=== PATIENT | female | born 1990 | race Caucasian/White ===

== ENCOUNTER 2022-12-09 07:33 | Day surgery (SDC) | payer BC, SELFPAY ==
[2022-12-09] MEDS: LACTATED RINGERS 1000 ML 1,000 ML 100 ML IV (07:50)
[2022-12-09 07:53] VITALS: BP 108/82; PULSE 78; RESP 16; TEMP 36.6; O2SAT 97; BMI 25.8
[2022-12-09] MEDS: SODIUM CHLORIDE 0.9 % (FLUSH) 10 ML SYRINGE IVF (08:06)
[2022-12-09 08:07] LABS: Hemoglobin* 14.5 gm/dL (12.0-16.0)
--- NOTE | 2022-12-09 08:34 | W.ANESCHARGE ---
Anesthesia Charges Start Date/Time Anesthesia Start Date: 12/09/22 Anesthesia Start Time: 08:43 Stop Date/Time Anesthesia Stop Date: 12/09/22 Anesthesia Stop Time: 10:14 Summary Emergency: No
[2022-12-09 09:08] LABS: Ur HCG Qualitative* Negative (Negative)
[2022-12-09] MEDS: LIDOCAINE 1 % PF 30 ML INJECTION (09:15)
[2022-12-09] MEDS: ESTROGENS, CONJUGATED VAGINAL 0.625 MG/G CREAM 1 APPLIC TOPICAL (09:26)
--- NOTE | 2022-12-09 10:14 | W.ANESCHARGE ---
Anesthesia Charges Start Date/Time Anesthesia Start Date: 12/09/22 Anesthesia Start Time: 08:43 Stop Date/Time Anesthesia Stop Date: 12/09/22 Anesthesia Stop Time: 10:14 Summary Emergency: No
[2022-12-09 10:17] VITALS: BP 102/73; PULSE 82; RESP 16; TEMP 36.9; O2SAT 98
--- NOTE | 2022-12-09 10:26 | W.PM.GYNPROC ---
Procedure Note Date Seen: 12/09/22 Procedure Details: Preop diagnosis: Perineal laceration repair revision, pelvic pain Postop diagnosis:Perineal laceration repair revision, pelvic pain Name of procedure: Pelvic exam under anesthesia, excision of perineal scar tissue, perineorrhaphy Surgeon: Lady Ervin Clinical Education Manager: None Complications: None EBL: 10mL Drains: None Findings: External hemorrhoids seen. Bilateral labia majora normal. Vaginal opening accommodates 1 finger. Posteriorly evidence of perineal laceration repair with adherence of posterior labia minora in the midline. There is about 2 cm of adhered tissue posteriorly closing the introitus. Vaginally there is fibrous tissue noted posteriorly and about 1cm in from hymenal ring. Behind the hymenal ring after this fibrous tissue there is an empty space followed by soft and normal posterior vaginal wall tissue. Patient was taken to the OR where MAC was provided w/o difficulty. Patient was placed in the dorsal lithotomy position, cleansed and draped in the usual sterile manner. Area of concern was infiltrated with local anesthetic 1% lidocaine with epinephrine, a total of 25mL of local anesthetic was utilized throughout the procedure. Allis clamps were placed at the level of the hymen and bilaterally at the posterior labia minora to delineate the shape of a jarocho with the posterior end at the level of a normal perineum/introitus. Utilizing a scalpel a jarocho shape incision was made to remove excess fibrotic tissue, which was removed with Metzembaum scissors. A moist gauze was then utilized to separate the fibromuscular layer from the vagina and this tissue was then reapproximated utilizing Vicryl 2-0 in an interrupted fashion making sure that sutures were symmetrical and knotting was midline. Then the vaginal apex was sutured with Vicryl 3-0 in an interrupted fashion until the level of the hymen. In a similar fashion as when closing a second degree perineal laceration. After approximation the introitus was able to easily accommodate 2-3 finger-breaths. The perineal skin was closed in a interrupted manner with Vicryl 4-0. To create symmetry the right labia majora posteriorly seemed longer and more redundant than the left side and a small amount of this tissue 0.5-1cm was removed with Metzembaum scissors. This was also united with interrupted stitches of Vicryl 4-0. To close up the empty space between the apex of the posterior vaginal wall at about 1cm above the hymen, 1 suture of Vicryl 3-0 was utilized. Estrogen cream was then applied gently to the area. Patient tolerated procedure well. She was waken up from anesthesia w/o complication. She was then transferred to recovery area in a stable condition. Instructions for pain management, cleansing, follow up were discussed with patient prior to surgery.
[2022-12-09 10:36] VITALS: BP 101/69; PULSE 78; RESP 14; O2SAT 99
[2022-12-09] MEDS: ACETAMINOPHEN 500 MG TABLET 1000 MG PO (11:37)
[2022-12-09 11:39] VITALS: BP 104/68; PULSE 72; RESP 14; TEMP 37; O2SAT 100
== END 2022-12-09 11:42 | disposition home or self-care (01) ==
PROVIDERS: PCP Family Medicine; Visit Provider Obstetrics & Gynecology
PROC: 0UQG0ZZ Repair Vagina, Open Approach (ICD-10-PCS; CPT 56800; principal; 2022-12-09 08:45)
DX: R10.2 Pelvic and perineal pain (principal); N90.89 Other specified noninflammatory disorders of vulva and perineum
CPT/HCPCS: 56800; 36415; 81025; 85018; 940; A9270; J1885; J2001; J2250; J2405; J2704; J3010; J7120

== ENCOUNTER 2023-11-08 10:30 | Outpatient (CLI) | payer BC, SELFPAY ==
--- NOTE | 2023-11-08 10:45 | CRLHL7_ITS ---
For Patients: As a result of the Century Cures Act, medical imaging exams and procedure reports are released immediately into your electronic medical record. You may view this report before your referring provider. If you have questions, please contact your health care provider. CLINICAL HISTORY: Pelvic pain TECHNIQUE: 2D jackson scale ultrasound. In addition color Doppler and spectral Doppler analysis was performed of the pelvis using a transabdominal and transvaginal approach. FINDINGS: An intramural fibroid is present within the right uterine fundus measuring 1.1 x 0.7 x 0.8 cm. The uterus measures 9.5 x 4.2 x 5.4 cm. The endometrial lining measures 12 mm in thickness. The right ovary measures 4.0 x 2.7 x 2.6 cm in size and the left ovary measures 3.1 x 1.4 x 2.0 cm. The ovaries demonstrate normal arterial and venous blood flow on color Doppler and spectral Doppler analysis. There are no suspicious fluid collections within the cul-de-sac. IMPRESSION: Normal ovaries. No torsion. No adnexal mass or excess pelvic free fluid. Small intramural fibroid measuring 1.1 cm. Dictated by Trino Ndiaye MD @ 11/08/2023 11:18:59 AM (Electronically Signed)
== END 2023-11-08 10:31 | disposition home or self-care (01) ==
LOC: US 10:31
PROVIDERS: PCP Family Medicine; Visit Provider Obstetrics & Gynecology
DX: R10.2 Pelvic and perineal pain (principal); D25.1 Intramural leiomyoma of uterus
CPT/HCPCS: 76830; 76856; 93976

== ENCOUNTER 2024-05-16 14:13 | Outpatient (CLI) | payer BC, SELFPAY | END 2024-05-16 14:14 | disposition home or self-care (01) | LOC: NFLDREF 14:15 | PROVIDERS: PCP Family Medicine; Visit Provider Family Medicine | DX: F41.9 Anxiety disorder, unspecified (principal) | CPT/HCPCS: 84443 ==

== ENCOUNTER 2024-06-26 15:44 | Outpatient (CLI) | payer BC, SELFPAY ==
--- NOTE | 2024-06-26 16:00 | CRLHL7_ITS ---
For Patients: As a result of the Cures Act, medical imaging exams and procedure reports are released immediately into your electronic medical record. You may view this report before your referring provider. If you have questions, please contact your health care provider. INDICATION: First trimester scan, establish dates. COMPARISON: None. TECHNIQUE: Real-time jackson-scale imaging of the pelvis was performed. FINDINGS: Sonographic imaging demonstrates a single twin diamniotic/dichorionic intrauterine gestation. Twin A: The embryo demonstrates a regular cardiac rate measuring 161 beats per minute. The embryo`s crown-rump length measurement of 2.4 cm corresponds to a gestational age of 9 weeks 0 days with a sonographic due date of 01/29/2025. There is a normal-appearing yolk sac. There are no gross abnormalities noted within the embryo at this early state of development. Twin B: The embryo demonstrates a regular cardiac rate measuring 171 beats per minute. The embryo`s crown-rump length measurement of 2.5 cm corresponds to a gestational age of 9 weeks 1 day with a sonographic due date of 01/28/2025. There is a normal-appearing yolk sac. There are no gross abnormalities noted within the embryo at this early state of development. Left inferior subchorionic hemorrhage measures 3.3 x 1.3 x 2.0 cm. The cervix is closed. The myometrium appears normal. The ovaries are of normal size. There are no suspicious fluid collections noted in the cul-de-sac. IMPRESSION: Twin A: Sonographic gestational age 9 weeks 0 days and a sonographic due date of 01/29/2025. Twin B: Sonographic gestational age 9 weeks 1 day and sonographic due date of 01/28/2025. Left inferior subchorionic hemorrhage measures 3.3 x 1.3 x 2.0 cm. Dictated by Trino Ndiaye MD @ 06/27/2024 9:53:43 AM (Electronically Signed)
== END 2024-06-26 15:45 | disposition home or self-care (01) ==
LOC: US 15:44
PROVIDERS: PCP Family Medicine; Visit Provider Registered Nurse
DX: Z34.91 Encounter for supervision of normal pregnancy, unspecified, first trimester (principal); O30.001 Twin pregnancy, unspecified number of placenta and unspecified number of amniotic sacs, first trimester; O20.9 Hemorrhage in early pregnancy, unspecified; Z3A.09 9 weeks gestation of pregnancy
CPT/HCPCS: 76817; 86703; 86706; 86803; 86850; 86900; 86901; 87086; 87340; 87491; 87591

== ENCOUNTER 2024-06-26 17:07 | Outpatient (CLI) | payer BC, SELFPAY ==
[2024-06-26 23:13] LABS: Chlamydia DNA Amplified* NOT DETECTED (No Detected); GC DNA Amplified* NOT DETECTED (No Detected)
== END 2024-06-26 17:08 | disposition home or self-care (01) ==
PROVIDERS: PCP Family Medicine; Visit Provider Registered Nurse
DX: Z34.81 Encounter for supervision of other normal pregnancy, first trimester (principal)
CPT/HCPCS: 86592; 86703; 86704; 86706; 86762; 86787; 86803; 86850; 86900; 86901; 87086; 87340; 87491; 87591

== ENCOUNTER 2024-09-05 08:42 | Outpatient (CLI) | payer BC, SELFPAY | END 2024-09-05 08:43 | disposition home or self-care (01) | LOC: US 08:43 | PROVIDERS: PCP Family Medicine; Visit Provider Registered Nurse | DX: O30.002 Twin pregnancy, unspecified number of placenta and unspecified number of amniotic sacs, second trimester (principal); Z3A.18 18 weeks gestation of pregnancy | CPT/HCPCS: 76811; 76812 ==

== ENCOUNTER 2024-10-03 09:52 | Outpatient (CLI) | payer BC, SELFPAY | END 2024-10-03 09:53 | disposition home or self-care (01) | LOC: US 09:52 | PROVIDERS: PCP Family Medicine; Visit Provider Obstetrics & Gynecology | DX: O30.009 Twin pregnancy, unspecified number of placenta and unspecified number of amniotic sacs, unspecified trimester (principal); Q24.8 Other specified congenital malformations of heart | CPT/HCPCS: 76816 ==

== ENCOUNTER 2024-10-31 10:07 | Outpatient (CLI) | payer BC, SELFPAY | END 2024-10-31 10:08 | disposition home or self-care (01) | LOC: US 10:08 | PROVIDERS: PCP Family Medicine; Visit Provider Obstetrics & Gynecology | DX: O30.002 Twin pregnancy, unspecified number of placenta and unspecified number of amniotic sacs, second trimester (principal); Q24.8 Other specified congenital malformations of heart; Z3A.26 26 weeks gestation of pregnancy | CPT/HCPCS: 76816 ==

== ENCOUNTER 2024-11-22 10:14 | Outpatient (CLI) | payer BC, SELFPAY | END 2024-11-22 10:15 | disposition home or self-care (01) | LOC: NFLDREF 12-03 14:20 | PROVIDERS: PCP Family Medicine; Referring Provider Family Medicine; Visit Provider Obstetrics & Gynecology | DX: Z34.93 Encounter for supervision of normal pregnancy, unspecified, third trimester (principal); Z3A.30 30 weeks gestation of pregnancy | CPT/HCPCS: 86592 ==

== ENCOUNTER 2025-01-02 12:45 | Outpatient (CLI) | payer BC, SELFPAY | END 2025-01-02 12:46 | disposition home or self-care (01) | LOC: US 12:45 | PROVIDERS: PCP Family Medicine; Visit Provider Obstetrics & Gynecology | DX: O30.043 Twin pregnancy, dichorionic/diamniotic, third trimester (principal); Z3A.35 35 weeks gestation of pregnancy | CPT/HCPCS: 76816 ==

== ENCOUNTER 2025-01-10 10:09 | Outpatient (CLI) | payer BC, SELFPAY ==
--- NOTE | 2025-01-10 10:15 | CRLHL7_ITS ---
For Patients: As a result of the Cures Act, medical imaging exams and procedure reports are released immediately into your electronic medical record. You may view this report before your referring provider. If you have questions, please contact your health care provider. OB ULTRASOUND BIOPHYSICAL PROFILES, 01/10/2025 CANDICE by LMP: 01/31/2025. GA: 37 w, 0 d. COMPARISONS: [facility] 01/02/2025, 11/28/2024, 10/31/2024. TWIN A: INDICATION: Twin . Di/Di twins. TECHNIQUE: Real time jackson scale imaging of the fetus was performed. Transabdominal. CERVIX: Not visualized. POSITIONING: Vertex Oblique, Transverse Left. AMNIOTIC FLUID: 6.9 cm. SDP (N: greater than 2 x 1 cm) BIOPHYSICAL PROFILE: Total score: 8. Gross body movements: 2. tone: 2. Respiratory activity: 2. Amniotic fluid: 2. (SDP N: greater than 2 x 1 cm) PLACENTA: Technique: Transabdominal. PLACENTA POSITION: Posterior. DOPPLER: heart rate: 127 bpm. TWIN B: INDICATION: Twin . Di/Di twins. TECHNIQUE: Real time jackson scale imaging of the fetus was performed. Transabdominal. CERVIX: Not visualized. POSITIONING: Breech Right. AMNIOTIC FLUID: 10.5 cm. SDP (N: greater than 2 x 1 cm) BIOPHYSICAL PROFILE: Total score: 8. Gross body movements: 2. tone: 2. Respiratory activity: 2. Amniotic fluid: 2. (SDP N: greater than 2 x 1 cm) PLACENTA: Technique: Transabdominal. PLACENTA POSITION: Anterior. DOPPLER: heart rate: 131 bpm. IMPRESSION: 1. Twin A: Normal biophysical profile 8/8. 2. Twin B: Normal biophysical profile 8/8. Amniotic fluid single deepest pocket 10.5 cm. Trino Ndiaye M.D. Diagnostic Radiologist [email or web address] DW/Dictated by: Trino Ndiaye MD @ 01/12/2025 6:51:00 AM (Electronically Signed)
== END 2025-01-10 10:10 | disposition home or self-care (01) ==
LOC: US 10:10
PROVIDERS: PCP Family Medicine; Visit Provider Obstetrics & Gynecology
DX: O30.009 Twin pregnancy, unspecified number of placenta and unspecified number of amniotic sacs, unspecified trimester (principal)
CPT/HCPCS: 76819

== ENCOUNTER 2025-01-10 12:00 | Outpatient (CLI) | payer BC, SELFPAY | END 2025-01-10 12:01 | disposition home or self-care (01) | LOC: NFLDREF 01-12 12:50 | PROVIDERS: PCP Family Medicine; Referring Provider Family Medicine; Visit Provider Obstetrics & Gynecology | DX: O30.003 Twin pregnancy, unspecified number of placenta and unspecified number of amniotic sacs, third trimester (principal); Z3A.37 37 weeks gestation of pregnancy | CPT/HCPCS: 87081; 87653 ==

== ENCOUNTER 2025-01-17 09:15 | Inpatient (IN) | payer BC, SELFPAY ==
[2025-01-17] VITALS (18 sets, daily range): BP systolic 102–154; BP diastolic 62–101; PULSE 56–82; RESP 16–20; TEMP 36.3–36.8; O2SAT 95–97; BMI 29.2
--- NOTE | 2025-01-17 10:19 | W.PM.LDBA ---
Subjective History of Present Illness Date Seen: 01/17/25 Narrative: Patient is being admitted to Labor and Delivery for delivery. She is a 34 year old at 38 0/7 weeks gestation. Her full history and physical was dictated by Dr. Jeffery on 01/10/25. Please see this for details. Patient desired re evaluation of presentation today prior to surgical intervention. If baby A was vertex, she would like to proceed with IOL. Unfortunately, bedside US confirms baby A is breech, baby B is vertex/oblique. Specific Issues/Plans G 3 P 2001 Partner: Michel Children: Amanda Giang Twins: Boys: Zurdo Waldrop, Good Woodard MD # Di-di twin . Perinatology referral:Normal non-invasive testing results from [facility], dizygotic, male fetuses. Level 2 US 09/05: See Below Twin B Mesocardia. This can be associated with abnormal cardiac anatomy. Normal cardiac anatomy on echo from 09/26/24. Can be caused by lung pathology / congenital diaphragmatic hernia. Level 2 scan 10/03: normal Marginal cord insertion of Twin A growth scans Q 4 weeks If discordance >20-25%, begin weekly BPP at 32 weeks. Otherwise, weekly BPP 36 weeks # History of delivery and successful . Patient desires if appropriate with twin . Patient plans to discuss further with physician team. for arrest of descent Successful 08/07/2021 Chance of successful : 92.6% Consent signed 11/22/24 If she needs a delivery, patient would like to proceed with surgical sterilization-bilateral salpingectomy. # Nausea and vomiting in . History of hyperemesis gravidarum. Phenergan did not manage the nausea and vomiting. Better managed with Zofran and Reglan # Small cervical polyp noted at 1st OB visit. # Anxiety. Currently stable w/o medication. # Genetic counseling: NIPT test completed - normal, dizygotic, male fetuses. Consider AFP at 16-18 weeks if desired: declines testing plan: Per MFM consult on 09/05/24 Growth ultrasounds every 4 weeks starting at 24 weeks, weekly testing after 36 weeks. Scheduling form sent out on 09/06/2024 Imaging: Level 2 ultrasound completed on 09/05/2024: Fetus a: Cephalic, marginal cord insertion, normal amount of amniotic fluid, normal anatomy. Fetus B: Transverse, three-vessel umbilical cord, normal amount of amniotic fluid, mesocardia, otherwise no other anomalies identified. Inter twin discordance 4% which is normal. Transabdominal imaging cervix appears long and closed. Recommendations: Referral placed to coordinate echocardiogram with Pediatric Cardiology in 1-2 weeks. Additionally, recommend repeat ultrasound with [facility] in 4 weeks to re-evaluate growth and anatomy, including anatomy that was suboptimally seen. Serial ultrasounds every 4 weeks are recommended with [facility] given this finding, in addition to weekly BPP at 36 weeks, which can be scheduled at [facility]. 10/03/2024: Level 2. 20% discordance in weights. Fetus A: Maternal left. Posterior placenta, three-vessel cord, SDP 5.2 cm, EFW >97%, AC>97%. Normal anatomy, normal echo. Fetus B: Transverse, maternal left. Anterior placenta, three-vessel cord, SDP 4.9 cm, EFW 84.3%, AC 65.2% Isolated mesocardia, otherwise normal anatomy. Normal echo. 10/31/24: 15.8% discordance. Fetus A: No anomalies. EFW and AC at >99%ile. Breech. Fetus B: Mesocardia again seen - no additional anomalies detected. EFW at 83%, AC 90%. Transverse. Discordance: 15.8%. No additional / echo recommended by peds cards. 11/28/24: 12% discordance 30w6d Fetus A: EFW: 2,296g >99%, AC: >99%. Breech. SDP: 4.3cm Fetus B: EFW: 2021g 90%, AC: 96%. Transverse. SDP: 5.9cm. 01/02/25: Follow up with [facility]: Fetus 1: Transverse. No anomalies commonly detected by ultrasound were identified in the limited anatomic survey within the limits of ultrasound.Growth parameters and estimated weight were consistent with gestational age predicted by assigned CANDICE.The amniotic fluid volume appeared normal. Fetus 2: Transverse, Mesocardia was again noted on today's US. Otherwise, no anomalies commonly detected by ultrasound were identified in the detailed anatomic survey within the limits of ultrasound. Growth parameters and estimated weight were consistent with gestational age predicted by assigned CANDICE. The inter-twin discordance was 6.6% (normal). Mild polyhydramnios was noted. Recommendation: Recommend weekly BPP starting at 36 weeks to monitor amniotic fluid and well being weekly, which Deepkia already has scheduled through [facility] until delivery, which is recommended at 38 weeks. As both twins are transverse today, this will be re-evaluated at her next BPP but if twin 1 is not cephalic presentation, Deepika is planning delivery by CS at 38w0d.No additional post- cardiac follow up has been recommended for twin 2 due to finding of isolated mesocardia. Vaccines: Flu: 09/20/2024 Covid: 09/20/2024 Tdap:11/22/24 RSV: Declined GBS: 01/10/25 H&P: By Dr. Jeffery on 01/10/25 OB - Problem Based A/P Additional Plan (1) Twin : Status: Acute (2) Previous delivery affecting : Status: Acute Plan Bedside US confirms baby A is breech, spine towards maternal left side. Baby B is vertex/oblique, back down-on maternal right side. Reviewed recommendation to proceed with delivery. Reviewed procedure and informed consent. Confirmed with patient that she does desire surgical sterilization. Questions answered, will proceed with surgery as planned. OB Exam Physical Exam Vital signs: Pulse BP Pulse Ox 68 109/77 97 01/17/25 10:17 01/17/25 10:17 01/17/25 10:18 Detailed Labor and Delivery Exam Patient Gravid: Yes Fetus A heart rate baseline: 130 monitor accelerations: Present monitor decelerations: None extermination supervisor variability: Moderate (11-25) Fetus B heart rate baseline: 120 monitor accelerations: Present monitor decelerations: None [facility] variability: Moderate (11-25)
[2025-01-17 11:08] LABS: Hematocrit 37.3 % (33.0-51.0); Hemoglobin* 12.4 gm/dL (12.0-16.0); Mean Corpuscular HGB Conc 33 gm/dL (32-36); Mean Corpuscular Hemoglobin 28 pg (26-34); Mean Corpuscular Volume 84 fL (80-100); Platelet Count* 148 K/uL (140-440); Red Blood Count 4.45 m/uL (4.00-5.20); White Blood Count* 6.37 K/uL (4.50-11.00)
[2025-01-17 11:12] LABS: Slide Review Reflex No
[2025-01-17 11:29] LABS: Blood Urea Nitrogen* 8 mg/dL (5-24); Creatinine* 0.7 mg/dL (0.5-1.5); Est. Creatinine Clearance* 114.23; Estimated Glomerular Filt Rate 116 ml/min
[2025-01-17 11:30] LABS: Alanine Aminotransferase* 14 U/L (4-35); Aspartate Amino Transferase* 29 U/L (12-35)
[2025-01-17] MEDS: CLINDAMYCIN 900 MG/50 ML-D5W 900 MG/50 ML PIGGYBACK 100 MG IVPB (11:34)
[2025-01-17] MEDS: GENTAMICIN 435 MG in 0.9 % SODIUM CHLORIDE 100 ml 100 ML 110.88 MG IVPB (11:44)
[2025-01-17] MEDS: LACTATED RINGERS 1000 ML 1,000 ML 100 ML IV (11:45)
[2025-01-17] MEDS: miSOPROStoL 800 MCG/4 TABLET PR (11:50)
[2025-01-17] MEDS: KETOROLAC 30 MG/ML inj IVP ×2 (12:35→18:30)
--- NOTE | 2025-01-17 12:51 | W.PM.NB ---
Nerve Block Nerve Block Time Seen by Provider: 12:40 Date Seen: 01/17/25 Type of block requested by surgeon for post-operative analgesia: TAP Side: bilateral Time out performed: Yes Verification of patient name: Yes Verification of date of : Yes Site marking: not applicable Name of person performing procedure: Penny Continuous monitoring Was continuous monitoring of O2 sat, B/P, monitor car operator, recorded every 15 minutes?: Yes Procedure Checklist: sterile prep, needles and gloves Ultrasound guided. Images saved: Yes Medications given in 5ml increments after negative aspiration: Marcaine %: 0.25 mL: 30 Needle gauge: 20 and Exparel mL: 10 Patient tolerated procedure well: Yes Block Charges Block Charge (with Pro Fee): TAP Bilateral Use of Ultrasound Machine for Block: Yes- US Guidance/pain block
--- NOTE | 2025-01-17 12:58 | P.ANES_ITS ---
Anesthesia Charges Start Date/Time Anesthesia Start Date: 01/17/25 Anesthesia Start Time: 11:21 Stop Date/Time Anesthesia Stop Date: 01/17/25 Anesthesia Stop Time: 13:00 Coding CPT Codes CPT Codes: ANESTH CS DELIVERY - 64551 ([id number]) P2 - PATIENT W/MILD SYST DISEASE, QK - SENIOR BACKUP ADMINISTRATOR 2-4 CNCRNT ANES PROC, QX - WIRE ANNEALER SVC W/ MD MED DIRECTION
--- NOTE | 2025-01-17 12:58 | W.ANESCHARGE ---
Anesthesia Charges Start Date/Time Anesthesia Start Date: 01/17/25 Anesthesia Start Time: 11:21 Stop Date/Time Anesthesia Stop Date: 01/17/25 Anesthesia Stop Time: 13:00 Coding CPT Codes CPT Codes: ANESTH CS DELIVERY - 14727 ([id number]) P2 - PATIENT W/MILD SYST DISEASE, QK - GIMP BUTTONHOLE MACHINE OPERATOR 2-4 CNCRNT ANES PROC, QX - CARE NAVIGATOR SVC W/ MD MED DIRECTION
--- NOTE | 2025-01-17 13:16 | P.ANES_ITS ---
Anesthesia Charges Start Date/Time Anesthesia Start Date: 01/17/25 Anesthesia Start Time: 11:21 Stop Date/Time Anesthesia Stop Date: 01/17/25 Anesthesia Stop Time: 13:00 Coding CPT Codes CPT Codes: ANESTH CS DELIVERY - 78855 ([id number]) P2 - PATIENT W/MILD SYST DISEASE, QK - CYCLE ANALYST 2-4 CNCRNT ANES PROC, QX - HELPER DRIVER SVC W/ MD MED DIRECTION
--- NOTE | 2025-01-17 13:16 | W.ANESCHARGE ---
Anesthesia Charges Start Date/Time Anesthesia Start Date: 01/17/25 Anesthesia Start Time: 11:21 Stop Date/Time Anesthesia Stop Date: 01/17/25 Anesthesia Stop Time: 13:00 Coding CPT Codes CPT Codes: ANESTH CS DELIVERY - 30508 ([id number]) P2 - PATIENT W/MILD SYST DISEASE, QK - GAMING INVESTIGATOR 2-4 CNCRNT ANES PROC, QX - SHOE PACKER SVC W/ MD MED DIRECTION
[2025-01-17] MEDS: OXYTOCIN 30 unit/500 ML in NS 30 UNIT/500 ML BAG 300 UNIT IVPB (13:30)
[2025-01-17] MEDS: ACETAMINOPHEN 500 MG TABLET 1000 MG PO ×2 (14:37→20:42)
[2025-01-17] MEDS: NIFEdipine 30 MG TAB.ER.24 PO (14:40)
--- NOTE | 2025-01-17 14:41 | PM.OBPRCCS ---
OB Delivery Proc Additional Procedures Tubal Ligation at the time of : Yes Other: No Procedure Date of procedure: 01/17/25 Pre-op diagnosis: Dichorionic diamniotic twin at 38 0/7 weeks malpresentation, presenting baby breech Previous section x1 Post-op diagnosis: same Procedure Done: Global Will [facility] bill your pro fee for this procedure?: Yes Blood Loss Measurement Type: QBL (3585) Bakri Used: No IV fluids (mL): 1,100 Urine Output (mL): 200 Urine Output Comment: Clear at end of procedure Surgeon: Des Ervin MD Dairy Management Specialist: Aida Jeffery MD Anesthesia Type: Spinal Findings: FINDINGS: Baby A: Live-born male , breech presentation, Apgars 8 and 9 at 1 and 5 minutes respectively. weight 7 lb 15 oz. Baby B: Live-born male , vertex presentation, Apgars 8 and 9 at 1 and 5 minutes respectively. weight 7 lb 3 oz. Grossly normal bilateral fallopian tubes and ovaries. Procedure Name: Repeat low transverse section, bilateral salpingectomy Procedure Description: PROCEDURE: After obtaining informed consent, the patient was taken to the operating room where spinal anesthesia was obtained and found to be adequate. She was prepared and draped in the normal sterile fashion in the dorsal supine position with a leftward tilt. A Pfannenstiel skin incision was made with a scalpel along the line of the previous incision. This incision was carried down to the underlying layer of fascia with the Bovie and scalpel. The fascia was incised in the midline and the incision extended laterally. The inferior aspect of the fascial incision was grasped with Kim clamps, elevated and the underlying rectus muscles dissected off sharply with curved Roberson scissors. The rectus muscles were then in the midline. The Ankur O retractor was then placed into the incision. The lower uterine segment was then incised in a transverse fashion with the scalpel. Upon entry into the uterus, clear amniotic fluid was noted. The uterine incision was extended cephalo caudally with blunt finger fractionation. Baby A: sacrum/buttocks were brought to incision and with fundal pressure fetus was delivered up to scapulas, hips were then grasped with a lap and gently assisted delivery, followed by the rest of the body and head. A nuchal cord noted at this time and easily reduced. The cord was doubly clamped and cut, after at least 30 seconds of delayed cord clamping and the was handed off the field to warmer for evaluation. Uterine exploration helped identify baby B head on the left maternal fundus and before amniotomy, head was gently grasped and presented to hysterotomy, amniotomy performed the 's head was delivered atraumatically, followed by the remainder of the infant's body. The cord was doubly clamped and cut, and after at least 30 seconds of delayed cord clamping the infant was handed off the field to warmer for evaluation. 1g of TXA was given at this moment. The placentas were delivered spontaneously with umbilical cord traction and fundal massage. The uterus was cleared of all clots and debris. Uterine atony noted at this time, managed with IV Oxytocin 40 units, Cytotec 800mcg rectally. The uterine incision was reapproximated in a running locking fashion with a 0 Vicryl suture. A 2nd layer of the same suture was used to imbricate in horizontal fashion. The uterus was then exteriorized. Both fallopian tubes were identified to their fimbrial ends. Attention was 1st turned to the left fallopian tube which was elevated utilizing 2 Morena clamps, starting from fimbrial end the mesosalpinx was sequentially clamped, coagulated and cut until the cornual end. Hemostasis secured. Same procedure was performed on the right side, hemostasis secured. The uterus was returned to the abdomen. The gutters were inspected and cleared of blood clot. All instruments and retractors were removed. The anterior peritoneum was reapproximated in a running fashion with a 3-0 Vicryl suture. The subfascial tissues were carefully inspected and hemostasis assured. The fascia was reapproximated in a running fashion with 0 Vicryl. The subcutaneous tissues were copiously irrigated. Hemostasis was assured. The subcutaneous fat layer was reapproximated with running sutures of 3-0 Vicryl. Incision keloid tissue removed utilizing Allis clamps and scalpel. The skin was closed in a subcuticular fashion with 4-0 Monocryl. LiquiBand and dressing were applied. The patient tolerated the procedure well. Sponge, lap, needle, and instrument counts were reported as correct x2. The patient was taken to the recovery room, awake, and in stable condition. She did receive IV Clindamycin and Gentamicin preoperatively due to penicillin allergy. Complications: Uterine atony and hemorrhage Pathology: specimen obtained, sent to pathology (2 placentas, fallopian tubes ) Surgery Debrief Performed: Yes Condition: stable Disposition: floor
[2025-01-17 17:46] LABS: Protein Creatinine Ratio Urine 0.52 (0-0.19); Total Protein Urine 13 mg/dL
[2025-01-18] MEDS: KETOROLAC 30 MG/ML inj IVP ×4 (00:12→18:08)
[2025-01-18 00:56] VITALS: BP 101/64; PULSE 71; RESP 18; TEMP 36.8
[2025-01-18] MEDS: ACETAMINOPHEN 500 MG TABLET 1000 MG PO ×2 (03:22→14:02)
[2025-01-18 04:47] VITALS: BP 97/62; PULSE 61; RESP 20
[2025-01-18 06:54] LABS: Basophils Absolute Auto 0.03 K/uL (0.00-0.30); Basophils Percent Auto 0.3 % (0.0-3.0); Eosinophils Absolute Auto 0.04 K/uL (0.00-0.50); Eosinophils Percent Auto 0.4 % (0.0-7.0); Hematocrit 31.9 % (33.0-51.0); Hemoglobin* 10.8 gm/dL (12.0-16.0); Immature Granulocytes Abs Auto 0.03 K/uL (0.00-0.30); Immature Granulocytes Pct Auto 0.3 %; Lymphocytes Percent Auto 13.5 % (20-44); Mean Corpuscular HGB Conc 34 gm/dL (32-36); Mean Corpuscular Hemoglobin 28 pg (26-34); Mean Corpuscular Volume 84 fL (80-100); Monocytes Percent Auto 6.3 % (0.0-11.0); Neutrophils Percent Auto 79.2 % (42.0-72.0); Platelet Count* 149 K/uL (140-440); RDW Coefficient of Variation % 13.8 % (11.5-15.5); White Blood Count* 10.85 K/uL (4.50-11.00)
[2025-01-18 07:11] LABS: Slide Review Reflex No
[2025-01-18 07:13] LABS: Aspartate Amino Transferase* 35 U/L (12-35); Blood Urea Nitrogen* 9 mg/dL (5-24); Creatinine* 0.7 mg/dL (0.5-1.5); Est. Creatinine Clearance* 114.23; Estimated Glomerular Filt Rate 116 ml/min
[2025-01-18 07:14] LABS: Alanine Aminotransferase* 12 U/L (4-35)
--- NOTE | 2025-01-18 07:30 | PM.OBPNVD1 ---
OB - PN:Subj Subjective Date Seen: 01/18/25 Patient comments OB post-: no complaints, pain well controlled, tolerating diet and flatus present [place] status: and doing well [place] feeding status: exclusively Narrative: Deepika feels well on day 1 post delivery with a tubal ligation. Her pain is well controlled with current medications.? She has no new complaints.? Urinary output is adequate and she is voiding without difficulty.? Has a good appetite, is tolerating a general diet, she is unaware if she is passing flatus (good bowel sounds auscultated), and has not had a bowel movement.? Has scant amount of rubra lochia.? She is ambulating well.?Blood pressures have been 90-100 since starting on Nifedipine yesterday afternoon. P/C ratio 0.52 from Gan catheter sample . Denies feeling lightheaded or dizzy. Plan to check on blood pressure trend before next to dose is given. was a struggle overnight with babies not latching well. Encouraged her to ask for help from nursing and to meet with today. She will likely desire discharge home tomorrow if both babies are cleared for discharge. OB - PN: Obj Exam Physical Exam: Vital signs: Temp Pulse Resp BP Pulse Ox O2 Del Method 98.2 F 61 20 97/62 95 Room Air 01/18/25 00:56 01/18/25 04:47 01/18/25 04:47 01/18/25 04:47 01/17/25 17:00 01/17/25 17:00 Narrative: GENERAL APPEARANCE:? normal affect, alert, no distress? MOOD:? appropriate? CHEST:? clear to auscultation and percussion? HEART:? regular rate and rhythm? ABDOMEN:? soft, non-tender the uterine fundus is U/U and is appropriate for the stage of recovery. Incision dressing is clean dry and intact.?+ bowel sounds auscultated. EXTREMITIES:? normal and no edema? OB - PN: Obj Data Labs Labs: Laboratory Results - last 24 hr 01/17/25 01/17/25 01/18/25 11:00 15:50 06:34 WBC 6.37 10.85 RBC 4.45 3.80 L Hgb 12.4 10.8 L Hct 37.3 31.9 L MCV 84 84 MCH 28 28 MCHC 33 34 RDW Coeff of [place] 13.8 Plt Count 148 149 Neut % (Auto) 79.2 H Lymph % (Auto) 13.5 L [place] % (Auto) 6.3 Eos % (Auto) 0.4 Baso % (Auto) 0.3 Neut # (Auto) 8.60 H Lymph # (Auto) 1.50 [place] # (Auto) 0.70 Eos # (Auto) 0.04 Baso # (Auto) 0.03 Abs Immat Gran (auto) 0.03 Imm/Tot Granulo (auto) 0.3 BUN 8 9 Creatinine 0.7 0.7 Estimated Creat Clear 114.23 114.23 Estimated GFR 116 116 AST 29 35 ALT 14 12 Urine Creatinine 25.0 Protein/Creatinin Ratio 0.52 H Urine Total Protein 13 Blood Type O Positive Antibody Screen NEGATIVE OB - PN: A/P Delivery Assessment and Plan (1) Previous delivery affecting : Status: Acute (2) care following delivery: Status: Acute (3) Lactating mother: Status: Acute (4) Twin delivery by : Status: Acute (5) Preeclampsia in period: Problem details: Nifedipine daily started 01/17/25 Status: Acute Plan day: 1 Plan: routine care Comments: Anticipated discharge home tomorrow of the following day per patient preference. Check blood pressures before next dose of Nifedipine.
[2025-01-18 09:00] VITALS: BP 105/67; PULSE 68; RESP 18; TEMP 36.9; O2SAT 94
[2025-01-18 12:45] VITALS: BP 105/69; PULSE 85; RESP 18; O2SAT 96
[2025-01-18 18:13] VITALS: BP 125/86; PULSE 85; RESP 16; TEMP 37.1; O2SAT 98
[2025-01-18] MEDS: DOCUSATE SODIUM 100 MG CAPSULE PO (19:18)
[2025-01-18 20:24] VITALS: BP 106/68; PULSE 75; RESP 18; O2SAT 96
[2025-01-19 00:47] LABS: Rapid Plasma Reagin (RPR) Non Reactive (Non Reactive)
[2025-01-19] MEDS: IBUPROFEN 600 MG TABLET PO ×2 (01:04→07:47)
[2025-01-19 03:47] VITALS: BP 110/70; PULSE 65; RESP 18; O2SAT 94
[2025-01-19] MEDS: ACETAMINOPHEN 500 MG TABLET 1000 MG PO (03:50)
[2025-01-19] MEDS: OXYCODONE 5 MG TABLET PO (03:51)
[2025-01-19 07:41] VITALS: BP 117/75; PULSE 65; RESP 16; TEMP 37.1; O2SAT 97
[2025-01-19] MEDS: DOCUSATE SODIUM 100 MG CAPSULE PO (07:47)
--- NOTE | 2025-01-19 09:47 | PM.OBDSVD1 ---
DS: Providers Provider Date Seen: 01/19/25 Date of admission: 01/17/25 09:15 Primary care physician: Compa Stover MD Admitting Clinician: Lady Ervin MD Attending Physician on discharge: Lady Ervin MD Exam Narrative: Exam Narrative: Vital signs reviewed and are within normal limits. She has been entirely normotensive since stopping nifedipine. General: Alert and oriented, in no acute distress. Seen seated upright, . Psych: Appropriate mood and affect Abdomen: Soft, nondistended. Fundus palpates the umbilicus, firm. Incision is well approximated without ecchymosis, erythema or drainage. Extremities: No significant lower extremity edema. No erythema or tenderness. Const: Vital Signs, click to edit/add: Vital Signs - 24 hr 01/18/25 12:45 01/18/25 18:13 01/18/25 20:24 Temperature 98.8 F Pulse Rate [Pulse Oximeter] 85 85 75 Respiratory Rate 18 16 18 Blood Pressure [Ri ght Arm] 105/69 125/86 106/68 Pulse Oximetry 96 98 96 Oxygen Delivery Me thod Room Air Room Air Room Air 01/19/25 03:47 01/19/25 07:41 Temperature 98.8 F Pulse Rate [Pulse Oximeter] 65 65 Respiratory Rate 18 16 Blood Pressure [Ri ght Arm] 110/70 117/75 Pulse Oximetry 94 97 Oxygen Delivery Me thod Room Air Room Air OB - DS: Summary Hospital Course Hospital Course: The patient is a 34 year old G 3 P 4 who is status post repeat with bilateral salpingectomy on 01/17/2025. This was performed in the setting of malpresentation with a dichorionic diamniotic twin gestation, complicated only by hemorrhage secondary to atony with a total QBL of 1245mL. Her course has notable for preeclampsia without severe features where she did receive 1 dose of nifedipine, but subsequently her blood pressures have been low normal without treatment. She has progressed through her postoperative milestones unremarkably. Patient notes that her postop pain is well controlled. She intermittently has some bloating and soreness from her time in bed. Denies any significant abdominal or pelvic pain, well controlled on oral analgesics. Appetite at baseline, no nausea or vomiting. She is voiding spontaneously, passing gas and BM x1. Denies any significant vaginal bleeding, described as small volume. No unrelenting headache, vision changes or right upper quadrant pain. No fevers/chills, chest pain/dyspnea, incision concerns, lower extremity erythema/edema/pain. She is bonding well with her babies - notes that there have been some feeding difficulties but overall they have several tools in her kit to help (syringe feed, SNS, etc.). No acute mood concerns. Peripartum Data Procedures: Procedures Operation Date: 01/17/25 10:50 Actual Procedure Side Surgeon p Repeat Section Twins, Bilateral Salpingectomy Lady Ervin MD [place] Gender: Male Time Spent with Patient Time attestation: Total time spent providing and/or coordinating discharge services: Discharge Plan Discharge Disposition: Home, Self-Care Date of Admission: 01/17/25 09:15 Primary Care Provider: Compa Stover Condition: Stable Anticipated Discharge Date/Time: 01/19/25 09:52 Discharge Medications: New oxycodone 5 mg Tablet 5 mg PO Q4H PRN (Reason: Pain) Qty: 15 0RF Continued calcium carbonate 600 mg calcium (1,500 mg) tablet 600 mg PO BID ferrous gluconate 236 mg (27 mg iron) tablet 236 mg PO QDAY magnesium 200 mg tablet 200 mg PO QDAY Unisom SleepMelts 25 mg tablet,disintegrating 25 mg PO QHS PRN DHA 200 mg capsule PO calcium carbonate [Tums] 200 mg calcium (500 mg) tablet,chewable 200 mg PO BID Discontinued aspirin [Adult Low Dose Aspirin] 81 mg tablet,delayed release (DR/EC) 81 mg PO QDAY Discharge Orders: Discharge Order (Routine); Ordered 01/19/25 Ordered By: Krista Taylor Additional Instructions: Discharge instructions were reviewed with the patient including signs and symptoms of infection and home going medications Lifting Restrictions: 20 pounds for 6 weeks No not submerge incision under water X 2 weeks? Nothing vaginally for 6 weeks: no tampons or intercourse Do not drive while taking narcotic pain medication(s) Off Work or School for 8 weeks Symptoms to report to doctor: Bleeding that saturates more than one pad per hour Passing clots larger than the size of a golf ball Pain not relieved by prescribed medication Fever above 100.4 degrees Fahrenheit A foul vaginal odor Difficulty in emotions, mood, and functions Thoughts of hurting yourself and/or Painful, reddened area in your breast Any drainage, redness, or tenderness in your IV/epidural site Severe headache that doesn't improve after taking medications Changes in vision, including temporary loss of vision, blurred vision, and/or light sensitivity Upper abdominal pain (usually under ribs on the right side) Decrease in urination or painful, frequent urinating Chest pain Shortness of breath Tenderness or pain with redness and/swelling in the calf(s) of your leg [facility] for a BP check?- TBD (likely midweek), clinic to call you to schedule on Tuesday. Call with BP persistent BP greater than or equal to 140/90, or with ANY BP of 160/110. Please call with unrelenting headache, vision changes or right upper quadrant pain. Optional 2-week visit: incision check, discuss infant feeding concerns, review control options and screen for anxiety/depression. 6-week visit for an annual exam. consultation services are available to all mothers and babies for the first year after delivery.? To make an appointment, please call [phone]. Activity Level: No strenuous activity Follow Up Appointments: Compa Stover MD [Primary Care Provider] - Forms: [employer] Info Instructions
== END 2025-01-19 13:20 | disposition home or self-care (01) | DRG 540 ==
PROVIDERS: Obstetrics & Gynecology; Admitting Provider Obstetrics & Gynecology; PCP Family Medicine; Visit Provider Obstetrics & Gynecology
PROC: 10D00Z1 Extraction of Products of Conception, Low, Open Approach (ICD-10-PCS; CPT 59514; principal; 2025-01-17 10:45)
DX: O30.043 Twin pregnancy, dichorionic/diamniotic, third trimester (principal); O99.344 Other mental disorders complicating childbirth; F41.9 Anxiety disorder, unspecified; O34.219 Maternal care for unspecified type scar from previous cesarean delivery; O32.1XX1 Maternal care for breech presentation, fetus 1; O14.05 Mild to moderate pre-eclampsia, complicating the puerperium; O72.1 Other immediate postpartum hemorrhage; G89.18 Other acute postprocedural pain; Z30.2 Encounter for sterilization; O34.43 Maternal care for other abnormalities of cervix, third trimester; N84.1 Polyp of cervix uteri; O21.0 Mild hyperemesis gravidarum; O69.89X0 Labor and delivery complicated by other cord complications, not applicable or unspecified; O35.B Maternal care for other (suspected) fetal abnormality and damage, fetal cardiac anomalies; Z37.2 Twins, both liveborn; Z3A.38 38 weeks gestation of pregnancy
CPT/HCPCS: 01961; 36415; 64488; 76815; 76942; 82565; 82570; 82962; 84156; 84450; 84460; 84520; 85018; 85025; 85027; 86592; 86850; 86900; 86901; 88302; 88307; A4314; A9270; J0665; J0666; J0736; J1100; J1580; J1885; J2274; J2371; J2405; J2590; J7120